=== PATIENT | female | born 1945 | race Caucasian/White ===

== ENCOUNTER 2017-08-04 13:36 | Outpatient (CLI) | payer MEDICARE ==
--- NOTE | 2017-08-04 15:25 | CT ---
CT BRAIN WITHOUT CONTRAST: Date: 08/04/17 HISTORY: Dementia, behavioral problems. FINDINGS: Comparison made with exam of 10/14/12. Mild atrophic changes are again seen. The ventricular size is stable and the basilar cisterns are pat ent. No evidence of infarct, hemorrhage, midline shift, or abnormal extra-axial fluid collections are noted. 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 The visualized parana jesús sinuses and mastoid air cells are well aerated. IMPRESSION: Stable exam. No CT evidence of acute intracranial process. POS: [facility]
== END 2017-08-04 13:37 | disposition home or self-care (01) ==
LOC: TBSIIMAG 13:36 → SCSCT 13:36
PROVIDERS: ATTEND Psychiatry & Neurology Neurology
DX: F03.90 Unspecified dementia, unspecified severity, without behavioral disturbance, psychotic disturbance, mood disturbance, and anxiety (principal)
CPT/HCPCS: 70450

== ENCOUNTER 2017-08-05 16:28 | Outpatient (CLI) | payer MEDICARE ==
--- NOTE | 2017-08-05 16:48 | RAD ---
RIGHT KNEE THREE VIEWS: 08/05/17 HISTORY: Right knee injury. FINDINGS: Joint spaces are preserved. Mild osteophytosis. No acute fracture, dislocation, or fluid distention o f the joint capsule. Calcification overlies the arterial structures. Hemostasis clips lie medial to t he distal femur. IMPRESSION: 1. Very mild osteoarthritic changes right knee. 2. Atherosclerosis. POS: [facility]
== END 2017-08-05 16:29 | disposition home or self-care (01) ==
LOC: SCSRAD 16:28
PROVIDERS: ATTEND Family Medicine
DX: S89.91XA Unspecified injury of right lower leg, initial encounter (principal); M17.11 Unilateral primary osteoarthritis, right knee; I70.90 Unspecified atherosclerosis